=== PATIENT | female | born 1955 | race Asian ===

== ENCOUNTER → 2019-03-12 11:31 | Outpatient (CLI) | payer MEDICARE, SELFPAY ==
--- NOTE | 2019-03-12 | DI.RAD.S_ITS ---
PROCEDURE: XR HIP W PEL IF DONE LT 2V INDICATIONS: PAIN IN LEFT HIP TECHNIQUE: AP pelvis with lateral view(s) of the left hip(s). COMPARISON: None. FINDINGS: Bones: No fractures or dislocations. Pelvic ring appears intact. No suspicious bony lesions. Soft tissues: The visualized bowel gas pattern is normal. No suspicious soft tissue calcifications. IMPRESSION: Normal for age, source of current left hip pain symptoms is not seen. Dictated by: Uziel Cabrera M.D. on 03/12/2019 at 12:46 Approved by: Uziel Cabrera M.D. on 03/12/2019 at 12:46
--- NOTE | 2019-03-12 | DI.RAD.S_ITS ---
PROCEDURE: XR SHOULDER RT MIN 2V INDICATIONS: PAIN IN RT SHOULDER TECHNIQUE: 3 views of the shoulder were acquired. COMPARISON: None. FINDINGS: Bones: No fractures or dislocations. No suspicious bony lesions. Visualized ribs appear intact. Soft tissues: No suspicious soft tissue calcifications. IMPRESSION: No trauma found. Mild osteophytic change at the a.c. joint. Dictated by: Uziel Cabrera M.D. on 03/12/2019 at 12:45 Approved by: Uziel Cabrera M.D. on 03/12/2019 at 12:45
--- NOTE | 2019-03-12 | DI.RAD.S_ITS ---
PROCEDURE: XR CERVICAL SPINE 2V OR 3V INDICATIONS: DISALGIA TECHNIQUE: 3 view(s) of the cervical spine were acquired. COMPARISON: None. FINDINGS: Bones: No fractures or dislocations to the T1 level. The lateral masses of C1 appear intact on the odontoid view. No suspicious bony lesions. Note is made of a mild degree of degenerative disc disease at C4-5 and a mild to moderate degree of such degeneration at C5-6, without subluxation Soft tissues: No prevertebral soft tissue swelling. IMPRESSION: There is relatively mild degenerative disc disease along the cervical spine is seen at C5-6 and no definite spinal or foraminal stenosis would be expected based on this appearance. Dictated by: Uziel Cabrera M.D. on 03/12/2019 at 12:46 Approved by: Uziel Cabrera M.D. on 03/12/2019 at 12:47
--- NOTE | 2019-03-12 | DI.RAD.S_ITS ---
PROCEDURE: XR LUMBAR SPINE 2-3V INDICATIONS: DORSALGIA LUMBAR BACK PAIN TECHNIQUE: 3 views of the lumbar spine were acquired. COMPARISON: None. FINDINGS: Bones: 5 [id number] vertebrae are present. There is normal bony alignment. No vertebral body compression fractures. No suspicious bony lesions. Soft tissues: Overlying bowel gas pattern is normal. No suspicious soft tissue calcifications. IMPRESSION: No trauma found, source of current pain is not identified. Dictated by: Uziel Cabrera M.D. on 03/12/2019 at 12:45 Approved by: Uziel Carbera M.D. on 03/12/2019 at 12:46
== END ==
PROVIDERS: Visit Provider Family Medicine
DX: M54.5 Low back pain (principal); M25.511 Pain in right shoulder; M25.552 Pain in left hip; M19.011 Primary osteoarthritis, right shoulder
CPT/HCPCS: 72040; 72100; 73030; 73502